=== PATIENT | male | born 1990 | race Caucasian/White ===

== ENCOUNTER 2017-06-30 13:08 | Emergency (ER) | payer SELFPAY ==
[~2017-06-30] VITALS: Ht 172.7 cm; Wt 80.0 kg
[2017-06-30 13:10] VITALS: BP 110/66
== END 2017-06-30 22:00 | disposition left against medical advice (07) ==
LOC: ER 13:08
DX: Z53.21 Procedure and treatment not carried out due to patient leaving prior to being seen by health care provider (principal)

== ENCOUNTER 2017-07-01 03:34 | Emergency (ER) | payer MEDICAID ==
[~2017-07-01] VITALS: Ht 165.1 cm; Wt 77.2 kg
[2017-07-01 03:44] VITALS: BP 120/58
== END 2017-07-01 05:20 | disposition left against medical advice (07) ==
LOC: ER 03:34
DX: Z53.21 Procedure and treatment not carried out due to patient leaving prior to being seen by health care provider (principal); F41.9 Anxiety disorder, unspecified; F90.9 Attention-deficit hyperactivity disorder, unspecified type; F17.210 Nicotine dependence, cigarettes, uncomplicated

== ENCOUNTER 2023-09-13 19:05 | Emergency (ER) | payer MEDICAID, OTHER ==
[~2023-09-13] VITALS: Ht 167.6 cm; Wt 82.0 kg
[2023-09-13 19:21] VITALS: O2SAT 99
[2023-09-13] MEDS ORDERED: HYDROCODONE/ACETAMINOPHEN 5/325MG TABLET PO ONE (19:30)
[2023-09-13] MEDS: HYDROCODONE/ACETAMINOPHEN 5/325MG TABLET PO NR (20:37)
[2023-09-13] MEDS: MORPHINE SULFATE 4 MG/ML INJ (FOR IV/IM USE) IM ONE (20:49)
[2023-09-13] MEDS ORDERED: LORAZEPAM 2MG/ML INJ IV ONE (21:15)
[2023-09-13] MEDS ORDERED: MORPHINE SULFATE 10 MG/ML INJ (NOT FOR IM USE) IV NR (21:15)
[2023-09-13] MEDS: SODIUM CHLORIDE 0.9% 1,000 ML IV ONE (21:32)
[2023-09-13] MEDS: MORPHINE SULFATE 10 MG/ML INJ (NOT FOR IM USE) IV ONE (21:32)
[2023-09-13] MEDS: LORAZEPAM 2MG/ML INJ IV ONE (21:32)
[2023-09-13 21:35] VITALS: TEMP 98
[2023-09-13] MEDS: PROPOFOL 200MG/20ML VIAL IV ONE ×2 (22:45→22:46)
[2023-09-13] MEDS: KETAMINE HCL 50 MG/ML 10ML IV ONE (22:45)
[2023-09-13] MEDS ORDERED: IBUP-2029 MT (22:54)
[2023-09-13 23:44] VITALS: BP 127/82; PULSE 108; RESP 14
== END 2023-09-13 23:48 | disposition home or self-care (01) ==
LOC: ER 19:05
DX: S43.005A Unspecified dislocation of left shoulder joint, initial encounter (principal); X58.XXXA Exposure to other specified factors, initial encounter; Y93.F2 Activity, caregiving, lifting; Y92.89 Other specified places as the place of occurrence of the external cause; Y99.8 Other external cause status
CPT/HCPCS: 73030; 23650; 96361; 96372; 96374; 99152; 99285; J3490; J2060; J2704; J2270 ×2; J7030; Z7610 ×3; A4565

== ENCOUNTER 2023-10-29 06:29 | Emergency (ER) | payer OTHER ==
[~2023-10-29] VITALS: Ht 167.6 cm; Wt 68.0 kg
[~2023-10-29 06:29] MED LIST: IBUP-2029 MT
[2023-10-29 06:34] VITALS: BP 119/74; PULSE 105; RESP 18; TEMP 98.3; O2SAT 100
== END 2023-10-29 06:55 | disposition home or self-care (01) ==
LOC: ER 06:29
DX: F13.10 Sedative, hypnotic or anxiolytic abuse, uncomplicated (principal); R13.0 Aphagia; F31.9 Bipolar disorder, unspecified
CPT/HCPCS: 99291

== ENCOUNTER 2023-11-23 15:22 | Emergency (ER) | payer OTHER ==
[~2023-11-23] VITALS: Ht 165.1 cm; Wt 75.0 kg
[2023-11-23 15:33] VITALS: BP 133/70; PULSE 71; RESP 16; TEMP 98.5; O2SAT 98
== END 2023-11-23 18:11 | disposition left against medical advice (07) ==
LOC: ER 15:22
DX: R21 Rash and other nonspecific skin eruption (principal); Z53.21 Procedure and treatment not carried out due to patient leaving prior to being seen by health care provider

== ENCOUNTER 2024-03-29 04:36 | Emergency (ER) | payer OTHER ==
[~2024-03-29] VITALS: Ht 175.3 cm; Wt 75.0 kg
[2024-03-29 04:42] VITALS: BP 100/65; PULSE 100; RESP 16; TEMP 99.4; O2SAT 100
== END 2024-03-29 07:13 | disposition left against medical advice (07) ==
LOC: ER 04:36
DX: M79.609 Pain in unspecified limb (principal); Z53.21 Procedure and treatment not carried out due to patient leaving prior to being seen by health care provider

== ENCOUNTER 2024-09-01 16:16 | Emergency (ER) | payer OTHER ==
[~2024-09-01] VITALS: Ht 175.3 cm; Wt 75.0 kg
[2024-09-01 16:45] VITALS: BP 117/69; PULSE 116; RESP 18; TEMP 36.4; O2SAT 99
== END 2024-09-01 18:38 | disposition left against medical advice (07) ==
LOC: ER 16:16
DX: F41.9 Anxiety disorder, unspecified (principal); Z53.21 Procedure and treatment not carried out due to patient leaving prior to being seen by health care provider